=== PATIENT | female | born 1945 | race Two or more races ===

== ENCOUNTER 2023-10-22 09:36 | Inpatient (IN) | payer OTHER ==
[~2023-10-22] VITALS: Ht 154.9 cm; Wt 68.7 kg
[2023-10-22] MEDS ORDERED: LISI-894 PO (09:54)
[2023-10-22] MEDS ORDERED: LEVO50 PO (09:54)
[2023-10-22] MEDS ORDERED: METF-1185 PO (09:54)
[2023-10-22] MEDS ORDERED: 0.9% SODIUM CHLORIDE 10 ML SYRINGE IVP PRN (10:15)
[2023-10-22] MEDS ORDERED: IOHEXOL 350 MG/ML 100 ML VIAL ONE (10:25)
[2023-10-22] MEDS ORDERED: SODIUM CHLORIDE 0.9% 100 ML ONE (10:26)
[2023-10-22] MEDS: ONDANSETRON HCL 4 MG/2 ML VIAL IVP ONE (10:31)
[2023-10-22] MEDS: ACETAMINOPHEN 1000 MG/ISO-OSM 100 ML IV ONE (10:32)
[2023-10-22] MEDS: SODIUM CHLORIDE 0.9% 1,000 ML IV ONE ×2 (10:32→11:17)
[2023-10-22 10:39] LABS: BASOPHILS % (AUTO) 0.4 % (0.0-2.0); EOSINOPHILS % (AUTO) 0.1 % (1.0-6.0); HEMATOCRIT 31.8 % (36-46); HEMOGLOBIN 10.1 g/dL (12.0-16.0); LYMPHOCYTES # (AUTO) 1.9 K/uL (1.0-4.8); LYMPHOCYTES % (AUTO) 11.7 % (22.0-44.0); MEAN CORPUSCULAR HEMOGLOBIN 24.7 pg (26.0-34.0); MEAN CORPUSCULAR HGB CONC 31.7 G/dL (31.0-37.0); MEAN CORPUSCULAR VOLUME 78 fL (80-100); MONOCYTES # (AUTO) 0.7 K/uL (0.1-1.0); MONOCYTES % (AUTO) 4.3 % (2.0-9.0); NEUTROPHILS # (AUTO) 13.7 K/uL (1.8-7.7); NEUTROPHILS % (AUTO) 83.5 % (40.0-70.0); PLATELET COUNT (AUTO) 344 K/uL (150-450); RED BLOOD CELL COUNT(AUTO) 4.08 MIL/uL (4.00-5.20); WHITE BLOOD COUNT (AUTO) 16.4 K/uL (4.5-11.0)
[2023-10-22 10:46] LABS: INR 1.1 (0.9-1.1); PROTHROMBIN TIME 11.1 SEC (9.4-11.6)
[2023-10-22 10:49] LABS: ANION GAP 14 mmol/L (8-16); CALCIUM, TOTAL 9.2 mg/dL (8.8-10.5); CARBON DIOXIDE 22 mmol/L (22-29); CHLORIDE 94 mmol/L (98-107); CREATININE 1.44 mg/dL (0.60-1.30); GLOMERULAR FILTR. RATE CALC 35 mL/min (>60); GLUCOSE,RANDOM 357 mg/dL (70-110); POTASSIUM 4.2 mmol/L (3.5-5.1); SODIUM SERUM 130 mmol/L (136-145); UREA NITROGEN, BLOOD 29 mg/dL (7-18)
[2023-10-22 10:52] LABS: COVID AG,FIA SOURCE NASAL SWAB
[2023-10-22 10:55] LABS: ALANINE AMINOTRANSFERASE 25 U/L (12-78); ALBUMIN 3.4 g/dL (3.4-5.0); ALKALINE PHOSPHATASE 152 U/L (46-116); ASPARTATE AMINOTRANSFERASE 23 U/L (15-37); BILIRUBIN,TOTAL 0.5 mg/dL (0.1-1.0); CREATINE KINASE, TOTAL ONLY 62 U/L (26-192); LIPASE 42 U/L (16-77); TOTAL PROTEIN, SERUM 7.9 g/dL (6.4-8.2)
[2023-10-22 10:56] LABS: B-TYPE NATRIURETIC PEPTIDE 114 pg/mL (0-100)
[2023-10-22 10:57] LABS: TROPONIN I-HIGH SENSITIVITY 8 ng/L (<51)
[2023-10-22 11:02] LABS: LACTIC ACID 2.6 mmol/L (0.4-2.0)
[2023-10-22 11:22] LABS: SARS-COV2 (COVID) ANTIGEN,FIA Negative (Negative)
[2023-10-22 11:23] LABS: INFLUENZA TYPE A NEGATIVE FOR TYPE A (NEGATIVE); INFLUENZA TYPE B NEGATIVE FOR TYPE B (NEGATIVE)
[2023-10-22 11:55] LABS: APPEARANCE,URINE CLEAR (CLEAR); BILIRUBIN,URINE NEGATIVE (NEGATIVE); COLOR,URINE COLORLESS (YELLOW); GLUCOSE, URINE (UA) >=1000 mg/dL (NEGATIVE); KETONES,URINE TRACE mg/dL (NEGATIVE); LEUKOCYTE ESTERASE ,URINE NEGATIVE (NEGATIVE); NITRATE,URINE NEGATIVE (NEGATIVE); OCCULT BLOOD,URINE SMALL (NEGATIVE); PH,URINE 5.5 (5.0-8.0); PROTEIN,URINE NEGATIVE (NEGATIVE); SPECIFIC GRAVITIY, URINE 1.014 (1.003-1.030); UROBILINOGEN,URINE <=1.0 mg/dL (<=1.0)
[2023-10-22] MEDS ORDERED: DEXTROSE 50%-WATER 25 GM/50 ML SYRINGE IVP PRN (12:00)
[2023-10-22] MEDS ORDERED: ALBUTEROL SULFATE 2.5 MG/0.5 ML NEB SOLUTION NEB PRN (12:00)
[2023-10-22] MEDS ORDERED: ONDANSETRON HCL 4 MG/2 ML VIAL IVP PRN (12:00)
[2023-10-22] MEDS ORDERED: IPRATROPIUM BROMIDE 0.5 MG/2.5 ML NEB SOLUTION NEB PRN (12:00)
[2023-10-22 12:03] LABS: BACTERIA,URINE None Seen /HPF (None Seen); RBC,URINE 0-2 /HPF (0-2); SQUAMOUS EPITHELIAL CELL,UR Few /LPF (None Seen); WBC,URINE None Seen /HPF (0-5)
[2023-10-22] MEDS: SODIUM CHLORIDE 0.9% 1,000 ML IV SCH (12:11)
[2023-10-22] MEDS ORDERED: HEPARIN SODIUM,PORCINE 5,000 UNITS/ML VIAL IVP PRN ×2 (12:30)
[2023-10-22 12:57] LABS: % IRON SATURATION 3.3 % (22-44)
[2023-10-22] MEDS: HEPARIN SODIUM,PORCINE 5,000 UNITS/ML VIAL IVP ONE (13:28)
[2023-10-22] MEDS: HEPARIN SODIUM 25000 UNITS/D5W 250 ML IV PRN (13:33)
[2023-10-22 14:55] VITALS: BP 141/61; PULSE 90; RESP 18; TEMP 97.9
[2023-10-22] MEDS ORDERED: HEPARIN SODIUM,PORCINE 5,000 UNITS/ML VIAL SQ SCH (16:00)
[2023-10-22] MEDS: INSULIN LISPRO 100 UNITS/ML SQ PRN (19:39)
[2023-10-22 19:44] VITALS: BP 131/60; PULSE 97; RESP 19; TEMP 100.6
[2023-10-22] MEDS: ACETAMINOPHEN 325 MG TABLET PO PRN (20:09)
[2023-10-22] MEDS: INSULIN GLARGINE,HUM.REC.ANLOG 100 UNITS/ML SQ SCH (21:36)
[2023-10-22 23:47] VITALS: BP 112/54; PULSE 86; RESP 18; TEMP 98.4
[2023-10-23 04:36] VITALS: BP 122/66; PULSE 77; RESP 18; TEMP 98.7
[2023-10-23] MEDS: LEVOTHYROXINE SODIUM 50 MCG TABLET PO SCH (06:10)
[2023-10-23 07:36] VITALS: BP 133/63; PULSE 83; RESP 16; TEMP 98.1
[2023-10-23 07:41] LABS: BASOPHILS % (AUTO) 0.5 % (0.0-2.0); EOSINOPHILS % (AUTO) 1.7 % (1.0-6.0); LYMPHOCYTES # (AUTO) 3.5 K/uL (1.0-4.8); LYMPHOCYTES % (AUTO) 32.1 % (22.0-44.0); MEAN CORPUSCULAR HEMOGLOBIN 25.3 pg (26.0-34.0); MEAN CORPUSCULAR HGB CONC 32.3 G/dL (31.0-37.0); MEAN CORPUSCULAR VOLUME 79 fL (80-100); MONOCYTES # (AUTO) 1.1 K/uL (0.1-1.0); MONOCYTES % (AUTO) 10.2 % (2.0-9.0); NEUTROPHILS # (AUTO) 6.1 K/uL (1.8-7.7); NEUTROPHILS % (AUTO) 55.5 % (40.0-70.0); PLATELET COUNT (AUTO) 288 K/uL (150-450); RED BLOOD CELL COUNT(AUTO) 3.31 MIL/uL (4.00-5.20); RED CELL DISTRIBUTION WIDTH 15.9 % (11.5-14.5)
[2023-10-23 07:46] LABS: HEMATOCRIT 25.9 % (36-46); HEMOGLOBIN 8.4 g/dL (12.0-16.0)
[2023-10-23 07:52] LABS: ALBUMIN 2.6 g/dL (3.4-5.0); BILIRUBIN,TOTAL 0.5 mg/dL (0.1-1.0); CALCIUM, TOTAL 8.2 mg/dL (8.8-10.5); CREATININE 1.14 mg/dL (0.60-1.30); POTASSIUM 4.1 mmol/L (3.5-5.1); TOTAL PROTEIN, SERUM 6.5 g/dL (6.4-8.2)
[2023-10-23] MEDS: DOCUSATE SODIUM 100 MG CAPSULE PO SCH (07:58)
[2023-10-23] MEDS: FERROUS SULFATE 325 MG EC TABLET PO SCH (07:58)
[2023-10-23] MEDS ORDERED: PENTETATE DTPA TC99M/MCL ISOTOPE 1 EA INJ INJ ONE (10:30)
[2023-10-23] MEDS ORDERED: MAA ALBUMIN AGGREGATED TC99M/UD<10MCL ISOTOPE 1 EA INJ ONE (10:55)
[2023-10-23 11:39] VITALS: BP 130/68; PULSE 89; RESP 18; TEMP 98.8
[2023-10-23 12:27] LABS: GLUCOMETER DEV NAME(LOC) 5N.2C; GLUCOSE,POINT OF CARE 225 MG/DL (70-110)
[2023-10-23 12:27] LABS: GLUCOMETER DEV NAME(LOC) 5S.2C; GLUCOSE,POINT OF CARE 169 MG/DL (70-110)
[2023-10-23 15:57] VITALS: BP 124/60; PULSE 84; RESP 17; TEMP 97.7
[2023-10-23 19:44] VITALS: BP 119/58; PULSE 89; RESP 18; TEMP 98.4
[2023-10-23] MEDS: APIXABAN 5 MG TABLET PO SCH (21:08)
[2023-10-24 00:35] VITALS: BP 118/57; PULSE 92; RESP 18; TEMP 98
[2023-10-24 03:45] VITALS: BP 114/67; PULSE 84; RESP 18; TEMP 98.2
[2023-10-24 07:42] LABS: BASOPHILS % (AUTO) 0.7 % (0.0-2.0); EOSINOPHILS % (AUTO) 3.4 % (1.0-6.0); HEMATOCRIT 27.7 % (36-46); HEMOGLOBIN 8.9 g/dL (12.0-16.0); LYMPHOCYTES # (AUTO) 3.1 K/uL (1.0-4.8); LYMPHOCYTES % (AUTO) 42.9 % (22.0-44.0); MEAN CORPUSCULAR HEMOGLOBIN 25.4 pg (26.0-34.0); MEAN CORPUSCULAR HGB CONC 32.3 G/dL (31.0-37.0); MEAN CORPUSCULAR VOLUME 79 fL (80-100); MONOCYTES # (AUTO) 0.7 K/uL (0.1-1.0); NEUTROPHILS # (AUTO) 3.1 K/uL (1.8-7.7); PLATELET COUNT (AUTO) 293 K/uL (150-450); RED BLOOD CELL COUNT(AUTO) 3.51 MIL/uL (4.00-5.20); RED CELL DISTRIBUTION WIDTH 15.9 % (11.5-14.5); WHITE BLOOD COUNT (AUTO) 7.3 K/uL (4.5-11.0)
[2023-10-24 07:51] LABS: CALCIUM, TOTAL 8.7 mg/dL (8.8-10.5); CREATININE 1.12 mg/dL (0.60-1.30)
[2023-10-24 08:00] VITALS: BP 135/65; PULSE 85; RESP 18; TEMP 98.2
[2023-10-24] MEDS: HYDROCODONE/ACETAMINOPHEN 5-325 MG TABLET PO PRN (08:48)
[2023-10-24 12:05] VITALS: BP 124/67; PULSE 92; RESP 18; TEMP 98
[2023-10-24] MEDS ORDERED: APIX5TAB PO (12:56)
[2023-10-24] MEDS ORDERED: AMLO-257 PO (13:02)
[2023-10-24 15:23] VITALS: BP 109/59; PULSE 96; RESP 18; TEMP 97.9
[2023-10-24 20:00] VITALS: BP 122/68; PULSE 97; RESP 19; TEMP 98
[2023-10-24 23:07] LABS: GLUCOMETER DEV NAME(LOC) 5S.1B; GLUCOSE,POINT OF CARE 192 MG/DL (70-110)
[2023-10-24 23:07] LABS: GLUCOMETER DEV NAME(LOC) 5S.1B; GLUCOSE,POINT OF CARE 230 MG/DL (70-110)
[2023-10-24 23:08] LABS: GLUCOMETER DEV NAME(LOC) 5S.1B; GLUCOSE,POINT OF CARE 182 MG/DL (70-110)
[2023-10-24 23:08] LABS: GLUCOMETER DEV NAME(LOC) 5S.1B; GLUCOSE,POINT OF CARE 193 MG/DL (70-110)
[2023-10-24 23:08] LABS: GLUCOMETER DEV NAME(LOC) 5S.1B; GLUCOSE,POINT OF CARE 294 MG/DL (70-110)
[2023-10-25 00:12] VITALS: BP 106/43; PULSE 87; RESP 17; TEMP 98.1
[2023-10-25 01:27] LABS: GLUCOMETER DEV NAME(LOC) 5N.1D; GLUCOSE,POINT OF CARE 132 MG/DL (70-110)
[2023-10-25 01:27] LABS: GLUCOMETER DEV NAME(LOC) 5N.1D; GLUCOSE,POINT OF CARE 238 MG/DL (70-110)
[2023-10-25 05:29] VITALS: BP 127/72; PULSE 85; RESP 17; TEMP 98
[2023-10-25 07:05] LABS: GLUCOMETER DEV NAME(LOC) 5S.1B; GLUCOSE,POINT OF CARE 222 MG/DL (70-110)
[2023-10-25 08:19] VITALS: BP 133/76; PULSE 83; RESP 17; TEMP 97.1
[2023-10-25 11:22] VITALS: BP 133/69; PULSE 100; RESP 17; TEMP 97.8
[2023-10-25 11:51] LABS: GLUCOMETER DEV NAME(LOC) 5S.1B; GLUCOSE,POINT OF CARE 359 MG/DL (70-110)
[2023-10-25] MEDS ORDERED: SITA25 PO (12:37)
[2023-10-25 15:43] VITALS: BP 145/77; PULSE 98; RESP 17; TEMP 98
[2023-10-30] MEDS ORDERED: APIXABAN 5 MG TABLET PO SCH (21:00)
== END 2023-10-25 17:00 | disposition home or self-care (01) | DRG 299 ==
LOC: EMS 09:36 → AHU 12:11 → 5S 14:02
PROVIDERS: ADMIT Internal Medicine; ATTEND Internal Medicine
DX: I82.462 Acute embolism and thrombosis of left calf muscular vein (principal); N17.0 Acute kidney failure with tubular necrosis; R65.10 Systemic inflammatory response syndrome (SIRS) of non-infectious origin without acute organ dysfunction; E87.21 Acute metabolic acidosis; E86.1 Hypovolemia; D50.9 Iron deficiency anemia, unspecified; E03.9 Hypothyroidism, unspecified; I10 Essential (primary) hypertension; Z20.822 Contact with and (suspected) exposure to COVID-19; E11.65 Type 2 diabetes mellitus with hyperglycemia; Z79.01 Long term (current) use of anticoagulants; Z79.84 Long term (current) use of oral hypoglycemic drugs; Z86.718 Personal history of other venous thrombosis and embolism; Z90.710 Acquired absence of both cervix and uterus
CPT/HCPCS: 71045; 74177; 76705; 78582; 80048; 80053; 81001; 82550; 82728; 82962; 83540; 83550; 83605; 83690; 83880; 84145; 84484; 85025; 85610; 85730; 87040; 87804; 93005; 93971; 97110; 97116; 97163; 97166; 97530; 97535; 99285; A9539; A9540; J0131; J1644; J1815; J2405; J7030; J7050; Q9967; 36415-L1; 36415-TC

== ENCOUNTER 2023-10-31 22:32 | Inpatient (IN) | payer OTHER ==
[~2023-10-31] VITALS: Ht 160 cm; Wt 68.6 kg
[~2023-10-31 22:32] MED LIST: AMLO-257 PO; APIX5TAB PO; LEVO50 PO; METF-1185 PO; SITA25 PO
[2023-10-31 22:55] LABS: COVID AG,FIA SOURCE NASAL SWAB
[2023-10-31 23:03] LABS: BASOPHILS % (AUTO) 0.6 % (0.0-2.0); EOSINOPHILS % (AUTO) 4.1 % (1.0-6.0); HEMOGLOBIN 9.1 g/dL (12.0-16.0); LYMPHOCYTES # (AUTO) 4.2 K/uL (1.0-4.8); LYMPHOCYTES % (AUTO) 45.8 % (22.0-44.0); MEAN CORPUSCULAR HEMOGLOBIN 25.3 pg (26.0-34.0); MEAN CORPUSCULAR HGB CONC 32.4 G/dL (31.0-37.0); MEAN CORPUSCULAR VOLUME 78 fL (80-100); MONOCYTES # (AUTO) 0.7 K/uL (0.1-1.0); MONOCYTES % (AUTO) 7.4 % (2.0-9.0); NEUTROPHILS # (AUTO) 3.9 K/uL (1.8-7.7); NEUTROPHILS % (AUTO) 42.1 % (40.0-70.0); PLATELET COUNT (AUTO) 441 K/uL (150-450); RED BLOOD CELL COUNT(AUTO) 3.58 MIL/uL (4.00-5.20); RED CELL DISTRIBUTION WIDTH 16.3 % (11.5-14.5); WHITE BLOOD COUNT (AUTO) 9.2 K/uL (4.5-11.0)
[2023-10-31 23:12] LABS: CALCIUM, TOTAL 8.7 mg/dL (8.8-10.5); CREATININE 1.43 mg/dL (0.60-1.30); POTASSIUM 5.1 mmol/L (3.5-5.1)
[2023-10-31 23:15] LABS: SARS-COV2 (COVID) ANTIGEN,FIA Negative (Negative)
[2023-10-31 23:18] LABS: ALBUMIN 3.3 g/dL (3.4-5.0); BILIRUBIN,TOTAL 0.3 mg/dL (0.1-1.0); TOTAL PROTEIN, SERUM 7.8 g/dL (6.4-8.2)
[2023-10-31 23:22] LABS: TROPONIN I-HIGH SENSITIVITY 6 ng/L (<51)
[2023-10-31 23:27] LABS: INR 1.2 (0.9-1.1); PROTHROMBIN TIME 12.1 SEC (9.4-11.6)
[2023-11-01] MEDS: SODIUM CHLORIDE 0.9% 1,000 ML IV ONE (00:08)
[2023-11-01 01:05] LABS: APPEARANCE,URINE CLEAR (CLEAR); BILIRUBIN,URINE NEGATIVE (NEGATIVE); COLOR,URINE COLORLESS (YELLOW); GLUCOSE, URINE (UA) 70-100 mg/dL (NEGATIVE); KETONES,URINE NEGATIVE (NEGATIVE); LEUKOCYTE ESTERASE ,URINE NEGATIVE (NEGATIVE); NITRATE,URINE NEGATIVE (NEGATIVE); OCCULT BLOOD,URINE SMALL (NEGATIVE); PH,URINE 5.5 (5.0-8.0); PROTEIN,URINE NEGATIVE (NEGATIVE); SPECIFIC GRAVITIY, URINE 1.007 (1.003-1.030); UROBILINOGEN,URINE <=1.0 mg/dL (<=1.0)
[2023-11-01 01:10] VITALS: BP 144/69; PULSE 84; RESP 20; TEMP 97.5
[2023-11-01 01:13] LABS: BACTERIA,URINE None Seen /HPF (None Seen); RBC,URINE 0-2 /HPF (0-2); SQUAMOUS EPITHELIAL CELL,UR Few /LPF (None Seen); WBC,URINE None Seen /HPF (0-5)
[2023-11-01 05:31] VITALS: BP 141/70; PULSE 80; RESP 18; TEMP 97.5
[2023-11-01 06:16] LABS: GLUCOMETER DEV NAME(LOC) 6S.2; GLUCOSE,POINT OF CARE 162 MG/DL (70-110)
[2023-11-01 07:57] VITALS: BP 140/67; PULSE 81; RESP 19
[2023-11-01] MEDS ORDERED: ACETAMINOPHEN 325 MG TABLET PO PRN (09:00)
[2023-11-01] MEDS ORDERED: MAGNESIUM HYDROXIDE SUSPENSION 30 ML UDCUP PO PRN (09:00)
[2023-11-01] MEDS ORDERED: DEXTROSE 50%-WATER 25 GM/50 ML SYRINGE IVP PRN (09:00)
[2023-11-01] MEDS: DOCUSATE SODIUM 100 MG CAPSULE PO SCH (10:56)
[2023-11-01] MEDS: FAMOTIDINE 20 MG TABLET PO SCH (10:56)
[2023-11-01] MEDS: INSULIN LISPRO 100 UNITS/ML SQ PRN (11:51)
[2023-11-01 14:46] LABS: GLUCOMETER DEV NAME(LOC) 4E.2; GLUCOSE,POINT OF CARE 177 MG/DL (70-110)
== END 2023-11-01 15:50 | disposition home or self-care (01) | DRG 641 ==
LOC: EMS 22:33 → 6S 11-01 01:10
PROVIDERS: ADMIT Internal Medicine; ATTEND Internal Medicine
DX: E87.5 Hyperkalemia (principal); N28.9 Disorder of kidney and ureter, unspecified; E11.9 Type 2 diabetes mellitus without complications; I10 Essential (primary) hypertension; Z20.822 Contact with and (suspected) exposure to COVID-19; E03.9 Hypothyroidism, unspecified; Z83.3 Family history of diabetes mellitus; Z86.718 Personal history of other venous thrombosis and embolism
CPT/HCPCS: 71045; 80053; 81001; 82550; 82962; 83880; 84484; 85025; 85610; 85730; 87081; 93005; 99285; 36415-L1; 36415-TC